=== PATIENT | female | born 1965 ===

== ENCOUNTER 2019-08-15 05:01 | Day surgery (SDC) | payer OTHER ==
[~2019-08-15 05:01] MED LIST: BIOTIN1 M1; CALCIUM500 M2; JANUMET 50-1,01 EACH PO; LANTUS SOL100 UNIT/1; LOVAZA1 GM; MAGNESIUM200 MG; SYNTHROID88 MCG PO
== END 2019-08-15 11:35 | disposition home or self-care (01) ==
LOC: CIR.AMB 05:01 → ADM 11:30 → CIR.AMB 11:35
DX: K43.2 Incisional hernia without obstruction or gangrene (principal)